=== PATIENT | female | born 1935 | race Caucasian/White ===

== ENCOUNTER 2017-07-21 09:24 | Emergency (ER) ==
[2017-07-21 09:30] VITALS: BP 145/78; TEMP 97.3; BMI 31.8
--- NOTE | 2017-07-21 09:53 | ED.PDOC ---
General ED Provider: Dr. ITA BARRETO Chief Complaint: Hip Pain/Injury Stated Complaint: right sided low back pain with radiation down right leg to foot along medial aspect of extremity. Onset while vacuuming, twisting back, 3 days ago. Bedrest and ibuprofen has not given her any releif. painful at rest, worse with weight bearing, lifting, pushing, pulling, or bending right leg. Time Seen by Physician: 09:54 Mode of Arrival: Walk-In Information Source: Patient Exam Limitations: No limitations Primary Care Provider: DARLEEN MARS Nursing and Triage Documentation Reviewed and Agree: Yes Musculoskeletal Complaint Exam - Back Pain Complaint/Exam Mechanism of Injury: Reports: Trauma (twisting back while vacuuming) Onset/Duration: 3 days ago Symptoms Are: Still present Timing: Constant Episodes Lasting: Days Initial Severity: Severe Current Severity: Severe Location: Reports: Radiating (right low back, radiating down medial right leg to foot) Character: Reports: Sharp, Aching, Throbbing Aggravating: Reports: Movements, Lifting, Bending, Walking Alleviating: Reports: None Associated Signs and Symptoms: Reports: Pain with weight bearing Related History: Reports: Similar episode (sciatica, many years ago) TAD Risk Factors: Reports: Hypertension AAA Risk Factors: Reports: Hypertension Cauda Equina Risk Factors: Reports: None Epidural Abcess Risk Factors: Reports: None Related Surgical History: Reports: None Focal Tenderness: Yes Paraspinal Muscle Tenderness: Yes Paraspinal Muscle Spasm: Yes Scoliosis: No Lordosis: No Kyphosis: No SLR Test: Right Positive Hip Motion Testing Pain: Right Negative, Left Negative Focal Weakness: Present: None Focal Sensory Loss: Present: None Gait: Present: Unsteady Differential Diagnoses: Herniated Disk, Sprain Review of Systems - Review Of Systems Constitutional: Reports: No symptoms GI: Reports: No symptoms Musculoskeletal: Reports: Back pain (with right sciatica) Skin: Reports: No symptoms Neurological: Reports: Other (right sciatica) All Other Systems: Reviewed and Negative Past Medical History - Past Medical History Previously Healthy: Yes Endocrine: Reports: Hypothyroid Cardiovascular: Reports: Hypertension Respiratory: Reports: Asthma Hematological: Reports: None Gastrointestinal: Reports: GERD Genitourinary: Reports: None Neuro/Psych: Reports: Anxiety, Depression Musculoskeletal: Reports: None Cancer: Reports: None Last Menstrual Period: n/a Other Pertinent Past Medical History: htn thy asth gerd depr anx card stent - Surgical History General Surgical History: Reports: Stent Placement - Family History Family History: Reports: Unknown - Social History Smoking Status: Never smoker Hx Substance Use: No Alcohol Screening: Occasionally Lives: With family - Immunizations Tetanus Shot up to Date: No Influenza Vaccine within 12 Months: No Pneumococcal Vaccine up to Date: No Physical Exam - Physical Exam Appearance: Well-appearing, Well-nourished, Obese Ill-appearing: None Pain Distress: Moderate Musculoskeletal: Normal strength, No edema, No calf tenderness, Limited ROM ( unable to bend at waste or bend right hip or knee secondary to back pain. +SLR on right at 30 degrees) Skin: Warm, Dry, Normal color Neurological: Sensation intact, Motor intact, Reflexes intact, Cranial nerves intact, Alert, Oriented Psychiatric: Affect appropriate, Mood appropriate Interpretation - Radiology Interpretation Radiology Interpretation By: Radiologist Radiology Results: No acute changes Exam Interpreted: Other Xray Comments: lumbar spine: DJD L4-5 Critical Care Note - Critical Care Note Total Time (mins): 0 Course - Course Orders, Labs, Meds: Orders Category Date Time Status Ketorolac Tromethamine [Toradol] MEDS 07/21/17 10:00 Discontinued 30 mg IM ONCE STA LUMBAR SPINE, MIN 4 VIEWS Stat RADS 07/21/17 10:01 Completed Medications Discontinued Medications Generic Name Dose Route Start Last Admin Trade Name Travis PRN Reason Stop Dose Admin Ketorolac Tromethamine 30 mg 07/21/17 10:00 07/21/17 10:09 Toradol IM 07/21/17 10:01 30 mg ONCE STA Administration Vital Signs: Temp Pulse Resp BP Pulse Ox 07/21/17 09:25 97.3 F L 68 95 H 145/78 H 20 L Departure - Departure Time of Disposition: 11:21 Disposition: HOME SELF-CARE Discharge Problem: Low back strain, Sciatica of right side Instructions: Low Back Strain (ED), Sciatica (ED) Condition: Good Pt referred to PMD for follow-up: No (see doctor if worsens or no better in 3 days) Allergies/Adverse Reactions: Allergies bacitracin [From Neosporin ([id number])] Adverse Reaction (Verified 07/21/17 09:30) neomycin [From Neosporin ([id number])] Adverse Reaction (Verified 07/21/17 09 :30) polymyxin B [From Neosporin ([id number])] Adverse Reaction (Verified 09:30) Home Medications: Ambulatory Orders Albuterol Sulfate [Ventolin Hfa] 18 gm IH DIRECTED 07/27/14 Guaifenesin [Mucinex] 600 mg PO Q12HR 07/27/14 Hydrochlorothiazide 25 mg PO DAILY 07/27/14 Levothyroxine Sodium [Synthroid] 100 mcg PO QDAC 07/27/14 Metformin HCl [Glucophage] 500 mg PO BIDWM 07/27/14 Montelukast Sodium [Singulair] 10 mg PO DAILY 07/27/14 [place]-3 Fatty Acids/Fish Oil [Fish Oil 1,000 mg Capsule] 3 each PO DAILY Pantoprazole Sodium [Protonix] 40 mg PO DAILY 07/27/14 Potassium Chloride [Klor-Con 10] 20 meq PO DAILY 07/27/14 Sertraline HCl [Zoloft] 100 mg PO DAILY 07/27/14 Aspirin [Aspirin Chewable] 81 mg PO DAILYWM 07/16/16 Losartan Potassium 100 mg PO DAILY 07/16/16 Lovastatin 40 mg PO DAILY 07/16/16 Metoprolol Succinate 25 mg PO DAILY 07/16/16 Acetaminophen with Codeine [Tylenol #3 Tab] 1 tab PO Q4H PRN #20 tablet Cholecalciferol (Vitamin D3) [Vitamin D] 50,000 unit PO MONTHLY 07/21/17 Cyclobenzaprine HCl [Flexeril] 10 mg PO TID #15 tablet 07/21/17 Ibuprofen [Motrin] 600 mg PO TID #21 tablet 07/21/17 Mometasone/Formoterol [Dulera 100 Mcg/5 Mcg Inhaler] 1 puff IH BID 07/21/17 Disposition Discussed With: Patient, Family
[2017-07-21] MEDS ORDERED: TORADOL IM STA (10:00)
--- NOTE | 2017-07-21 11:01 | DI ---
EXAM: Five views of the lumbar spine HISTORY: Low back pain, sciatica on the right. TECHNIQUE: AP lateral, oblique and coned-down lateral views of the lumbar spine were obtained. FINDINGS: The alignment of the lumbar spine is normal. There is no evidence of acute compression fr acture. There is no pars defect. There is moderate loss of disc height seen at L4-L5. There is fac et arthropathy seen within the lower lumbar spine. There is facet diffuse atherosclerotic calcificati on of the abdominal aorta. IMPRESSION: No evidence of acute compression fracture. 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 There is no spondylolisthesis. Facet joint arthropathy seen within the lower lumbar spine.
== END 2017-07-21 11:41 | disposition home or self-care (01) ==
LOC: ED 09:24
DX: S39.012A Strain of muscle, fascia and tendon of lower back, initial encounter (principal); M54.41 Lumbago with sciatica, right side; X50.1XXA Overexertion from prolonged static or awkward postures, initial encounter
CPT/HCPCS: 96372; 99283

== ENCOUNTER → 2017-09-18 | Outpatient (RCR) ==
--- NOTE | 2017-09-08 15:34 | RS.OPPTEV2 ---
Date of Note: 09/08/17 Visit #: 1 Date of Evaluation: 09/08/17 Payer Source: MEDICARE Surgery Performed?: No Treatment Diagnosis: sciatica History of Condition/Mechanism of Injury:: pt states she has had a long history of LBP radiating into BLE has increased last couple of months. Prior Level of Function.....Patient was independent with: Self Care, Ambulation/ Mobility, Community Integration/Access Functional Limitations: Bending, Squatting, Ambulation Current Subjective/complaints:: pt states she is feeling some better since getting prednisone from [facility]. pt states she also got Lortab, but isn't taking the pain medicine. *Precautions: try to avoid bending, lifting, twisting Medical History Medical History: Hypertension, Diabetes, Arthritis Medical History Comments:: asthma, carpal tunnel syndrome, CAD Smoking Status: Former smoker Diagnostic Testing/Imaging:: 08/2017 MRI of Lumbar spine. Hx Home Medications: aspirin, fish oil, hydrochlorothiazide, losartan potassium , lovastatin, metformin, mucinex, protonix, singulair, synthroid, ventolin, zoloft, vitamin D, dulera, metoprolol succinate ER, potassium chloride, prednisone. Patient's Goals: decrease pain Pain Assessment - Pain Description Pain Location: lower lumbar area radiating into R LE to foot Pain Description: Radiating, Throbbing, Aching Pain Description: 3 Worst Pain Intensity: 7 Other Comments regarding Pain:: pain increases with flexion, standing Functional Outcome Measure Oswestry LBP: 15 (30%) - G Codes & Severity Modifier G Codes & Modifier: mobility current CJ. mobility goal CI Source of G Code score: oswestry low back pain scale Observation - Observation Posture: Forward Head, Rounded Shoulders, Increased Thoracic Kyphosis, Decreased Lumbar Lordosis Gait - Gait Pattern General Gait Pattern Observation: No Deviations/Normal General Range of Motion: WFL's with pain on R shld Muscle Strength: RUE shld flex 4/5, elbow flex/ext 4+/5, LUE shld flex 4+/5, elbow flex/ext 4+/5. LLE : hip flex 4+/5 knee flex/ext 4+/5,. RLE hip flex 4/5 , knee flex/ext 4/5 - ROM Lumbar Flexion: Hand reach to Mid-Thighs Sidebending to Left: Reach to Mid-thigh Sidebending to Right: Reach to Mid-thigh Lumbar Spine ROM Limitations: Soft Tissue Tightness, Pain - Special Tests EVERETT Test: Negative Left, Negative Right SLR Test: Negative Left, Negative Right Palpation Palpation Findings: Tenderness, Trigger Point, Muscle Guarding Comments:: lower lumbar with trigger point noted on R paraspinal approx L4-L5 level Sensation - Sensation Right Upper Extremity: Intact/Normal Left Upper Extremity: Intact/Normal Right Lower Extremity: Impaired Left Lower Extremity: Intact/Normal Sensation Description: Pain Balance - Sitting Balance Static Sitting Balance: Good Dynamic Sitting Balance: Good - Standing Balance Static Standing Balance: Good Dynamic Standing Balance: Good - Treatment Modality: Electrical Stim Unattended Parameters/Method Applied: R lumbar IFC 12ma, x 20 mins with cold pack Treatment Area: R lower lumbar Patient Position: Prone - Heat/Cryotherapy Treatment: Cryotherapy Interventions - Exercise/Activities/Manual Therapy Exercises/Activities: pt performed prone lying and prone on elbows which decreased radiating pain and centralized pain. pt also performed standing lumbar ex. Manual Therapy: n/a HOME EXERCISE PROGRAM: pt given written HEP for prone ext exercises, also instructed to rest during the day and limit bending, lifting and twisting - Charges Total Direct Minutes: 58 Total Treatment Time: 58 Procedures billed for this date of service:: eval med, estim unattended, cold pack Assessment Assessment: pt presents with low back pain, radiating into RLE with improvement in pain with ext. Patient Education: Home Exercise Program, Activity Modification, Education of Plan of Care Rehab Potential: Good Short Term Goals Goal #1: pt rate pain<3/10 with activity Goal to be met by: 09/22/17 Goal #2: pt with improved lumbar ROM with decreased pain Goal to be met by: 09/22/17 Nutrition Partner Goals Goal #1: pt independent with HEP Goal to be met by: 10/09/17 Goal #2: pt with decreased pain < 2/10 with activity with no radiating pain Goal to be met by: 10/09/17 Goal #3: pt report increased ability to perform tasks at home with fewer rest period Goal to be met by: 10/09/17 Plan - Treatment to be Provided Procedures: Therapeutic Exercises, Therapeutic Activity, Neuromuscular Rehab, Manual Therapy, Patient Education Modalities: Electrical Stimulation, Ultrasound/Phonophoresis, Cryotherapy, Hot Packs - Treatment Plan Frequency: 2 X week Duration: 4 weeks ORDER # VISITS AND/OR THROUGH DATE: 10/09/17 - Treatment Code (1) Sciatica Code(s): M54.30 - SCIATICA, UNSPECIFIED SIDE Qualifiers: Laterality: right Qualified Code(s): M54.31 - Sciatica, right side (2) Low back pain Code(s): M54.5 - LOW BACK PAIN Qualifiers: Chronicity: acute Back pain laterality: unspecified Sciatica presence: with sciatica Sciatica laterality: sciatica of right side Qualified Code(s) : M54.41 - Lumbago with sciatica, right side
--- NOTE | 2017-09-16 11:59 | RS.OPPTDN ---
Subjective Date of Note: 09/16/17 Visit #: 2 Date of Evaluation: 09/08/17 Payer Source: MEDICARE Treatment Diagnosis: sciatica Current Subjective/complaints:: Patient says she felt relief with her treatment at [facility]. She says she has been working on HEP and feels it is helping. She c/ o pain to the R low back and sciatic pain to R leg, but admits she sleeps on the R side. *Precautions: try to avoid bending, lifting, twisting Pain Assessment - Pain Description Pain Location: R low back and sciatic - Treatment Modality: Electrical Stim Unattended Parameters/Method Applied: IFC @ 13-14 pk volts x 20 mins to the R lumbar paraspinals and SI region Patient Position: Prone - Heat/Cryotherapy Treatment: Cryotherapy Interventions - Exercise/Activities/Manual Therapy Exercises/Activities: pt prone with estim treatment. She performed prone on elbows 2 mins x 2, then alternate LE lift in prone x 5 with AA. Patient supine for assisted hamstring stretching bilaterally x 2, piriformis x 2. Pillow squeezes and isometric hip abd x 10. Patient reviewed HEP and advised to use ice/heat for pain control also. Total minutes of Exercise: 16 Manual Therapy: n/a HOME EXERCISE PROGRAM: pt given written HEP for prone ext exercises, also instructed to rest during the day and limit bending, lifting and twisting - Charges Total Direct Minutes: 16 Total Treatment Time: 36 Procedures billed for this date of service:: cp, estim (un), ex Assessment: Patient responding to estim and extension exercises at present. She is compliant already with HEP, but will progress exercises as she improves. Piriformis slightly tight and admits feeling better after this stretch. Recommended sleeping on the uninvolved side with pillow support and discussed log rolling. Patient Education: Education of diagnosis, Body/Joint mechanics, Home Exercise Program, Education of Plan of Care Patient demonstrates compliance with HEP?: Yes Short Term Goals Goal #1: pt rate pain<3/10 with activity Goal to be met by: 09/22/17 Goal #2: pt with improved lumbar ROM with decreased pain Goal to be met by: 09/22/17 [facility] Goals Goal #1: pt independent with HEP Goal to be met by: 10/09/17 Goal #2: pt with decreased pain < 2/10 with activity with no radiating pain Goal to be met by: 10/09/17 Goal #3: pt report increased ability to perform tasks at home with fewer rest period Goal to be met by: 10/09/17 Plan PLAN OF CARE EXPIRES ON:: 10/09/17 ORDER # VISITS AND/OR THROUGH DATE: 10/09/17 PLAN: Patient to continue with modalities and extension exercises progressing as emely
--- NOTE | 2017-09-18 11:29 | RS.OPPTDN ---
Subjective Date of Note: 09/18/17 Visit #: 3 Date of Evaluation: 09/08/17 Payer Source: MEDICARE Treatment Diagnosis: sciatica Current Subjective/complaints:: Patient reports treatment and exercise are helping reduce pain. Reports no discomfort following treatment today. *Precautions: try to avoid bending, lifting, twisting Pain Assessment - Pain Description Pain Location: right hip/S-I region Current Pain Intensity: mild, no pain after treatment session - Treatment Modality: Electrical Stim Unattended Parameters/Method Applied: [id number] HVGC to 110p.v. with 4 large pads cross current to the right gluteal/S-I joint area with HP prior to EX. Patient Position: Prone - Heat/Cryotherapy Treatment: Hot Pack ([id number] with Estim) Interventions - Exercise/Activities/Manual Therapy Exercises/Activities: Paitent in prone lying for estim treatment. She performed prone on elbows during discussion of HEP. Alt hip extension in prone lying, 10reps. Supine for SKTC. Patient given copy of new exercises. Total minutes of Exercise: 12mins Manual Therapy: n/a HOME EXERCISE PROGRAM: pt given written HEP for prone ext exercises, also instructed to rest during the day and limit bending, lifting and twisting. Prone alt hip extension. Supine SKTC stretching. - Charges Total Direct Minutes: 12mins Total Treatment Time: 35mins Procedures billed for this date of service:: HP, Estim unattended, EX Assessment: Patient responding to treatment and exercise. Patient appears motivated to work on HEP. Patient Education: Body/Joint mechanics, Home Exercise Program, Activity Modification Comments: Reveiwed general safety including precautions with housework. Patient demonstrates compliance with HEP?: Yes Short Term Goals Goal #1: pt rate pain<3/10 with activity Goal to be met by: 09/22/17 Progress towards Goal:: Progressing Goal #2: pt with improved lumbar ROM with decreased pain Goal to be met by: 09/22/17 Progress towards Goal:: Progressing [facility] Goals Goal #1: pt independent with HEP Goal to be met by: 10/09/17 Progress towards goal: Progressing Goal #2: pt with decreased pain < 2/10 with activity with no radiating pain Goal to be met by: 10/09/17 Goal #3: pt report increased ability to perform tasks at home with fewer rest period Goal to be met by: 10/09/17 Plan PLAN OF CARE EXPIRES ON:: 10/09/17 ORDER # VISITS AND/OR THROUGH DATE: 10/09/17 PLAN: Continue modalities and progress exercise to reduce pain and increase patients functional activity level.
== END ==
PROVIDERS: ATTEND Family Medicine
DX: M54.30 Sciatica, unspecified side (principal)

== ENCOUNTER 2017-10-08 10:00 | Outpatient (RCR) ==
--- NOTE | 2017-09-22 11:27 | RS.OPPTDN ---
Subjective Date of Note: 09/22/17 Visit #: 4 Date of Evaluation: 09/08/17 Payer Source: MEDICARE Treatment Diagnosis: sciatica Current Subjective/complaints:: Patient says her back is feeling better, but mentions she is sore in her legs. She says she understands she may have discomfort or soreness when beginning exercises and eager to continue. She reports performing HEP 2xdaily. *Precautions: try to avoid bending, lifting, twisting - Treatment Modality: Electrical Stim Unattended Parameters/Method Applied: [place] x 20 mins crossed to the R low back and hip @ 120 pk volts Patient Position: Prone - Heat/Cryotherapy Treatment: Hot Pack Interventions - Exercise/Activities/Manual Therapy Exercises/Activities: Patient in prone lying for estim treatment. She performed prone on elbows 3x3 mins. Alt hip extension in prone lying, 10reps. Supine for SKTC, HS, piriformis, fig 4. Continues with performing pillow squeezes and isometric hip abd in hooklying x 10. Total minutes of Exercise: 20 Manual Therapy: n/a HOME EXERCISE PROGRAM: pt given written HEP for prone ext exercises, also instructed to rest during the day and limit bending, lifting and twisting. Prone alt hip extension. Supine SKTC stretching. - Charges Timed Code Treatment Minutes: 20 Total Treatment Time: 40 Procedures billed for this date of service:: hp, estim (un), ex Assessment: Patient admitting improved back pain with only having intermittent soreness to the LE's related to beginning exercises. Patient is very compliant with initial HEP at this time. She should benefit from further modalities and progressing therex. Patient Education: Education of diagnosis, Body/Joint mechanics, Home Exercise Program Patient demonstrates compliance with HEP?: Yes Short Term Goals Goal #1: pt rate pain<3/10 with activity Goal to be met by: 09/22/17 Progress towards Goal:: Progressing Goal #2: pt with improved lumbar ROM with decreased pain Goal to be met by: 09/22/17 Progress towards Goal:: Progressing Pressurised Container Filler Goals Goal #1: pt independent with HEP Goal to be met by: 10/09/17 Progress towards goal: Progressing Goal #2: pt with decreased pain < 2/10 with activity with no radiating pain Goal to be met by: 10/09/17 Goal #3: pt report increased ability to perform tasks at home with fewer rest period Goal to be met by: 10/09/17 Plan PLAN OF CARE EXPIRES ON:: 10/09/17 ORDER # VISITS AND/OR THROUGH DATE: 10/09/17 PLAN: continue for modalities and therex to improve back pain and flexibility and LE strength.
--- NOTE | 2017-09-24 11:54 | RS.OPPTDN ---
Subjective Date of Note: 09/24/17 Visit #: 5 Date of Evaluation: 09/08/17 Payer Source: MEDICARE Treatment Diagnosis: sciatica Current Subjective/complaints:: Patient reports pain in the right hip/gluts is much better. Reports mild discomfort into the right upper leg. She reports she is doing more light activities around her home without aggravating her pain. *Precautions: try to avoid bending, lifting, twisting Pain Assessment - Pain Description Pain Location: Right gluts, hip, and LE - Treatment Modality: Electrical Stim Unattended Parameters/Method Applied: [id number] HVGC to 110p.v. with 4 large pads cross current to the right lowback and gluteal region with HP prior to EX. Patient in prone. Patient Position: Prone - Heat/Cryotherapy Treatment: Hot Pack ([id number] with Estim ) Interventions - Exercise/Activities/Manual Therapy Exercises/Activities: Prone lying during treatment. Prone alt hip extension in prone lying. Supine for SKTC, HS, piriformis, and fig 4. Pillow squeezes and isometric hip abd in hooklying. Alt hip flexion, isometric trunk rotation in neutral, and SLR, all 10reps bilaterally. Total minutes of Exercise: 15mins Manual Therapy: n/a HOME EXERCISE PROGRAM: pt given written HEP for prone ext exercises, also instructed to rest during the day and limit bending, lifting and twisting. Prone alt hip extension. Supine SKTC stretching. - Charges Timed Code Treatment Minutes: 15mins Total Treatment Time: 40mins Procedures billed for this date of service:: HP, Estim unattended, EX Assessment: Patient progressing well and reporting an increase in functional activities in her home without aggravating pain. Patient Education: Body/Joint mechanics, Home Exercise Program Patient demonstrates compliance with HEP?: Yes Short Term Goals Goal #1: pt rate pain<3/10 with activity Goal to be met by: 09/22/17 Progress towards Goal:: Partially Met Goal #2: pt with improved lumbar ROM with decreased pain Goal to be met by: 09/22/17 Progress towards Goal:: Partially Met [employer] Goals Goal #1: pt independent with HEP Goal to be met by: 10/09/17 Progress towards goal: Partially Met Goal #2: pt with decreased pain < 2/10 with activity with no radiating pain Goal to be met by: 10/09/17 Progress towards goal: Progressing Goal #3: pt report increased ability to perform tasks at home with fewer rest period Goal to be met by: 10/09/17 Progress towards goal: Progressing Plan PLAN OF CARE EXPIRES ON:: 10/09/17 ORDER # VISITS AND/OR THROUGH DATE: 10/09/17 PLAN: Progress exercise to reduce pain and increase functional activity level.
--- NOTE | 2017-09-29 11:27 | RS.OPPTDN ---
Subjective Date of Note: 09/29/17 Visit #: 6 Date of Evaluation: 09/08/17 Payer Source: MEDICARE Treatment Diagnosis: sciatica Current Subjective/complaints:: Patient reports continued progress with back and right hip/glut pain. States she was able to do more activities at home with minimal increase in pain. *Precautions: try to avoid bending, lifting, twisting Pain Assessment - Pain Description Pain Location: right hip/gulteal region Pain Description: Dull Current Pain Intensity: 2-3/10 - Treatment Modality: Electrical Stim Unattended Parameters/Method Applied: [id number] HVGC to 165p.v. with 4 large pads cross current to the right lower lumbar paraspinals and gluts with HP prior to EX. Patient Position: Prone - Heat/Cryotherapy Treatment: Hot Pack ([id number] with Estim ) Interventions - Exercise/Activities/Manual Therapy Exercises/Activities: Prone lying during treatment. Focus on stretching today in supine for SKTC, HS, piriformis, and fig 4. Pillow squeezes and isometric hip abd in hooklying. Isometric trunk rotation in neutral and SLR, all 10reps bilaterally. Patient denies discomfort with SLR today. Total minutes of Exercise: 14mins Manual Therapy: n/a HOME EXERCISE PROGRAM: pt given written HEP for prone ext exercises, also instructed to rest during the day and limit bending, lifting and twisting. Prone alt hip extension. Supine SKTC stretching. - Charges Timed Code Treatment Minutes: 14mins Total Treatment Time: 40mins Procedures billed for this date of service:: HP, Estim unattended, EX Assessment: Patient progressing well and benefitting from treatment. She is consistent ly reporting decreased pain and increased function with daily activities at home. Patient Education: Home Exercise Program, Activity Modification Patient demonstrates compliance with HEP?: Yes Short Term Goals Goal #1: pt rate pain<3/10 with activity Goal to be met by: 09/22/17 Progress towards Goal:: Partially Met Goal #2: pt with improved lumbar ROM with decreased pain Goal to be met by: 09/22/17 Progress towards Goal:: Met Longterm Goals Goal #1: pt independent with HEP Goal to be met by: 10/09/17 Progress towards goal: Partially Met Goal #2: pt with decreased pain < 2/10 with activity with no radiating pain Goal to be met by: 10/09/17 Progress towards goal: Progressing Goal #3: pt report increased ability to perform tasks at home with fewer rest period Goal to be met by: 10/09/17 Progress towards goal: Met Plan PLAN OF CARE EXPIRES ON:: 10/09/17 ORDER # VISITS AND/OR THROUGH DATE: 10/09/17 PLAN: Continue with progressive strengthening and stretching exercise to reduce pain and increase functional activity level.
--- NOTE | 2017-10-01 11:37 | RS.OPPTDN ---
Subjective Date of Note: 10/01/17 Visit #: 7 Date of Evaluation: 09/08/17 Payer Source: MEDICARE Treatment Diagnosis: sciatica Current Subjective/complaints:: Patient says her R low back and leg continues to improve. She says she is able to notice increased flexibility as well. *Precautions: try to avoid bending, lifting, twisting Pain Assessment - Pain Description Pain Location: mild to the R low back and SI joint - Treatment Modality: Electrical Stim Unattended Parameters/Method Applied: Hivolt 4 large pads surrounding the lumbar spine @ 120 increasing to 140 pk volts x 20 mins Patient Position: Prone - Heat/Cryotherapy Treatment: Hot Pack Interventions - Exercise/Activities/Manual Therapy Exercises/Activities: Prone lying during treatment. Focus continued on stretching today in supine for SKTC, HS, piriformis, and fig 4. Pillow squeezes and isometric hip abd/flex in hooklying. Isometric trunk rotation in neutral and SLR, all 10reps bilaterally. Total minutes of Exercise: 22 Manual Therapy: n/a HOME EXERCISE PROGRAM: pt given written HEP for prone ext exercises, also instructed to rest during the day and limit bending, lifting and twisting. Prone alt hip extension. Supine SKTC stretching. - Charges Timed Code Treatment Minutes: 22 Total Treatment Time: 42 Procedures billed for this date of service:: hp, estim (un), ex Assessment: Patient maintaining lowered R sided back pain and SI. She demo improved hamstring flexibility and trunk stability. Patient Education: Body/Joint mechanics, Home Exercise Program Patient demonstrates compliance with HEP?: Yes Short Term Goals Goal #1: pt rate pain<3/10 with activity Goal to be met by: 09/22/17 Progress towards Goal:: Partially Met Goal #2: pt with improved lumbar ROM with decreased pain Goal to be met by: 09/22/17 Progress towards Goal:: Met Nursing Home Goals Goal #1: pt independent with HEP Goal to be met by: 10/09/17 Progress towards goal: Partially Met Goal #2: pt with decreased pain < 2/10 with activity with no radiating pain Goal to be met by: 10/09/17 Progress towards goal: Progressing Goal #3: pt report increased ability to perform tasks at home with fewer rest period Goal to be met by: 10/09/17 Progress towards goal: Met Plan PLAN OF CARE EXPIRES ON:: 10/09/17 ORDER # VISITS AND/OR THROUGH DATE: 10/09/17 PLAN: Continue for modalities and therex to further improve flexibility and progress trunk stability to lower pain and increase function.
--- NOTE | 2017-10-06 11:26 | RS.OPPTDN ---
Subjective Date of Note: 10/06/17 Visit #: 8 Date of Evaluation: 09/08/17 Payer Source: MEDICARE Treatment Diagnosis: sciatica Current Subjective/complaints:: Patient says she has had significantly less pain recently. Rates 1-2/10 on average. States prolonged standing seems to bother her the most. She says she is able to get onto the bed/plinth without any problems now. *Precautions: try to avoid bending, lifting, twisting Pain Assessment - Pain Description Pain Location: light to the R side of the LB/SI - Treatment Modality: Electrical Stim Unattended Parameters/Method Applied: hivolt 4 large pads crossed to the R lumbar paraspinals @ 125-145 pk volts x 20 mins Patient Position: Prone - Heat/Cryotherapy Treatment: Hot Pack Interventions - Exercise/Activities/Manual Therapy Exercises/Activities: Prone lying during treatment. Continued on stretching today in supine for SKTC, HS, piriformis, and fig 4. Pillow squeezes and isometric hip abd/flex in hooklying. Isometric trunk rotation in neutral and SLR , all 10reps bilaterally. Total minutes of Exercise: 20 Manual Therapy: n/a HOME EXERCISE PROGRAM: pt given written HEP for prone ext exercises, also instructed to rest during the day and limit bending, lifting and twisting. Prone alt hip extension. Supine SKTC stretching. - Charges Timed Code Treatment Minutes: 20 Total Treatment Time: 40 Procedures billed for this date of service:: hp, estim (un), ex Assessment: Patient has improved per subjective reports of lessened pain to quite low and intermittent based on prolonged activity/standing. She describes no difficulty now with previous impaired ADLs. She is performing HEP, but did encourage BID. Demo improved bilateral HS flexibility as well. Patient Education: Home Exercise Program, Education of Plan of Care Patient demonstrates compliance with HEP?: Yes Short Term Goals Goal #1: pt rate pain<3/10 with activity Goal to be met by: 09/22/17 Progress towards Goal:: Met Goal #2: pt with improved lumbar ROM with decreased pain Goal to be met by: 09/22/17 Progress towards Goal:: Met Care Home Goals Goal #1: pt independent with HEP Goal to be met by: 10/09/17 Progress towards goal: Met Goal #2: pt with decreased pain < 2/10 with activity with no radiating pain Goal to be met by: 10/09/17 Progress towards goal: Met Goal #3: pt report increased ability to perform tasks at home with fewer rest period Goal to be met by: 10/09/17 Progress towards goal: Met Plan PLAN OF CARE EXPIRES ON:: 10/09/17 ORDER # VISITS AND/OR THROUGH DATE: 10/09/17 PLAN: Patient has completed POC at this time and will plan to discharge
--- NOTE | 2017-10-10 15:27 | RS.OPPTDC ---
Date of Discharge: 10/06/17 Date of Evaluation: 09/08/17 Number of Visits: 8 Treatment Diagnosis: sciatica Current Level of Function: pt demonstrates improvement with oswestry to now only 4% disability from 30% at eval. pt has had increased flexibilty allowing pt to reach hands to distal patella. Current Complaints/Gains: pt states that she does not have pain, she states that pain is very low and intermittent and only at R SI joint. pt states she is able to do most all ADL's with exception of vacuuming Functional Outcome Measure Oswestry LBP: 4 - G Codes & Severity Modifier G Codes & Modifier: mobility dc CI. mobility goal CI Source of G Code score: oswestry Observation - Observation Posture: Forward Head, Rounded Shoulders Gait - Gait Pattern General Gait Pattern Observation: No Deviations/Normal General Range of Motion: WFL's Muscle Strength: WFL's Interventions - Exercise/Activities/Manual Therapy Exercises/Activities: n/a Manual Therapy: n/a HOME EXERCISE PROGRAM: pt given written HEP for prone ext exercises, also instructed to rest during the day and limit bending, lifting and twisting. Prone alt hip extension. Supine SKTC stretching. - Charges Timed Code Treatment Minutes: na Total Treatment Time: n/a Procedures billed for this date of service:: n/a Assessment Assessment: pt has met all goals with decreased pain, increased strength. Patient Education: Education of diagnosis, Home Exercise Program, Activity Modification, Education of Plan of Care Rehab Potential: Good Short Term Goals Goal #1: pt rate pain<3/10 with activity Goal to be met by: 09/22/17 Progress towards Goal:: Met Goal #2: pt with improved lumbar ROM with decreased pain Goal to be met by: 09/22/17 Progress towards Goal:: Met [facility] Goals Goal #1: pt independent with HEP Goal to be met by: 10/09/17 Progress towards goal: Met Goal #2: pt with decreased pain < 2/10 with activity with no radiating pain Goal to be met by: 10/09/17 Progress towards goal: Met Goal #3: pt report increased ability to perform tasks at home with fewer rest period Goal to be met by: 10/09/17 Progress towards goal: Met Plan Reason for Discharge:: All Goals Met
== END 2017-10-19 ==
PROVIDERS: ATTEND Family Medicine
DX: M54.30 Sciatica, unspecified side (principal)